=== PATIENT | female | born 1965 | race Caucasian/White ===

== ENCOUNTER → 2020-07-17 13:22 | Outpatient (CLI) | payer MEDICARE, MEDICAID, SELFPAY ==
[2020-07-10 14:19] VITALS: BMI 34.7
--- NOTE | 2020-07-17 13:23 | US_ITS ---
HISTORY: Goiter . Neck swelling. 33 images. No comparison imaging. Findings: The thyroid isthmus is normal at 3 mm. The right lobe of the thyroid gland is homogeneous in echotexture measuring 4.3 x 1.2 by 1.6 cm No nodules are perceived. Color Doppler imaging demonstrates flow to the right lobe of the thyroid. The left lobe of the thyroid gland measures 3.2 x 0.8 x 1 cm. Left lobe thyroid gland is homogeneous in echotexture. No nodules are perceived. Color Doppler imaging suggests flow to the left lobe of thyroid gland. US/Thyroid IMPRESSION: Normal. at 0647 Reported and signed by: Dajuan Estrada MD Electronically Signed: Dajuan Estrada MD at 6:46 EST Tel , Service support ,
== END ==
PROVIDERS: PCP Nurse Practitioner Family; Referring Provider Internal Medicine Endocrinology, Diabetes & Metabolism; Visit Provider Internal Medicine Endocrinology, Diabetes & Metabolism
DX: E04.9 Nontoxic goiter, unspecified (principal)
CPT/HCPCS: 76536

== ENCOUNTER → 2023-02-07 | Outpatient (CLI) | payer MEDICARE, MEDICAID, SELFPAY ==
--- NOTE | 2023-02-07 14:00 | RAD_ITS ---
EXAM: XR LUMBOSACRAL SPINE, 2 OR 3 VIEWS CLINICAL INDICATION: Radiculopathy, lumbar region TECHNIQUE: Frontal and lateral views of the lumbar spine and sacrum. COMPARISON: No relevant prior studies available. FINDINGS: VERTEBRAE: There are disc markers over L3-4 and L4-5 levels, apparently disc spacers. Posterior hardware at L3-4 is intact. Mild anterior spondylosis most pronounced at L1-L3. The usual lordotic curvature of the lumbar spine is well-maintained. Preserved vertebral body height. No fracture. No significant facet arthropathy. DISC SPACES: Mild disc space narrowing at L1-2 and L2-3. VASCULATURE: Peripheral calcification of the infrarenal aorta, no evidence of aneurysm. GASTROINTESTINAL TRACT: Unremarkable as visualized. Included bowel gas pattern is non-obstructive. RAD/Lumbar Spine 2 or 3 Views IMPRESSION: Degenerative and postoperative changes. No acute abnormality identified. Well-maintained lordotic curvature. Advanced aortoiliac arterial atherosclerotic calcification for the patient''s stated age. Electronically Signed: Joycelyn iKnsey MD at 8:49 EDT ,
--- NOTE | 2023-02-07 14:00 | RAD_ITS ---
EXAM: XR CERVICAL SPINE, 4 OR 5 VIEWS CLINICAL INDICATION: Radiculopathy, cervical region TECHNIQUE: 3 views, AP, lateral and open-mouth odontoid views. COMPARISON: No relevant prior studies available. FINDINGS: VERTEBRAE: Mild anterior spondylosis at 3-4 and moderate anterior spondylosis at C4-5. Straightening of the usual lordotic curvature. Postoperative changes with anterior stabilization plate and vertebral body screws at C5-6-7 with well fused appearance of the disc spaces. Preserved vertebral body height. No acute fracture. No significant facet arthropathy. DISC SPACES: Unremarkable. Disc spaces are maintained. SOFT TISSUES: Unremarkable. No prevertebral soft tissue widening. LUNG APICES: Clear. RAD/Cerv Spine 2 or 3 Views IMPRESSION: Degenerative and postoperative changes. No acute findings. Electronically Signed: Joycelyn Kinsey MD at 8:39 EDT ,
== END | disposition home or self-care (01) ==
PROVIDERS: PCP Nurse Practitioner Family; Referring Provider Anesthesiology Pain Medicine; Visit Provider Anesthesiology Pain Medicine
DX: M54.12 Radiculopathy, cervical region (principal); M54.16 Radiculopathy, lumbar region
CPT/HCPCS: 72040; 72100

== ENCOUNTER → 2023-08-08 | Outpatient (CLI) | payer MEDICARE, MEDICAID, SELFPAY ==
[2023-08-08 11:36] LABS: Amphetamine Urine VISTA NEGATIVE (<1000 ng/mL); Barbiturate Urine VISTA NEGATIVE (< 200 ng/mL); Benzodiazepine Urine VISTA NEGATIVE (< 200 ng/mL); Cocaine Urine VISTA NEGATIVE (< 300 ng/mL); Ecstacy Urine VISTA POSITIVE (< 500 ng/mL); Methadone Urine VISTA NEGATIVE (< 300 ng/mL); PCP Urine VISTA NEGATIVE (< 25 ng/mL); THC Urine VISTA NEGATIVE (< 50 ng/mL); Vista UDS pH Range 8
== END | disposition home or self-care (01) ==
LOC: LAB 10:32
PROVIDERS: Referring Provider Anesthesiology Pain Medicine; Visit Provider Anesthesiology Pain Medicine
DX: F11.20 Opioid dependence, uncomplicated (principal)
CPT/HCPCS: 80307

== ENCOUNTER → 2023-10-04 | Outpatient (CLI) | payer MEDICARE, MEDICAID, SELFPAY ==
--- NOTE | 2023-10-04 14:41 | MRI_ITS ---
STUDY: MRI LUMBAR SPINE WITHOUT CONTRAST REASON FOR EXAM: Female, 58 years old. Pain low back and left hip; hx 2 prior fusions TECHNIQUE: Standardized fat and water weighted pulse sequences were obtained in the sagittal and axial planes. COMPARISON: X-ray lumbar spine dated September 23, 2023. FINDINGS: Normal lumbar lordosis. There is no substantial scoliosis. Normal conus medullaris that terminates at the T12-L1 level. No marrow edema or fracture or compression deformity is present. Posterior fusion rods and pedicle screws and interbody grafts are present at L3-L4. T12-L1: Normal endplates. Normal disc height, hydration and morphology. Normal bilateral facet joints. Normal central canal and bilateral lateral recesses. Normal bilateral intervertebral neural foramina. L1-2: Diffuse disc desiccation with mild to moderate disc space narrowing and diffuse disc bulge/spur complex. Mild facet joint hypertrophy. Moderate left foraminal stenosis with nerve root compression. Mild right foraminal stenosis. Normal central canal and bilateral lateral recesses. L2-3: Diffuse disc desiccation with moderate disc space narrowing and a diffuse disc bulge/disc spur. Mild central canal stenosis and bilateral lateral recess stenosis with nerve root compression secondary to moderate facet joint and mild ligamenta flava hypertrophy. Mild bilateral foraminal stenosis. Low signal fibrosis surrounds the left foraminal nerve root with mass effect on the nerve root best appreciated on image /15 series 7 and 25/30 series 10. Normal bilateral facet joints. Normal central canal and bilateral lateral recesses. Normal bilateral intervertebral neural foramina. L3-4: Stable interbody graft. No evidence of osteomyelitis or discitis. Small Schmorl''s node/endplate degenerative changes noted. No posterior disc herniation or bulging. Significant right facet joint hypertrophy. Mild to moderate right foraminal stenosis with posterior nerve root impingement. Normal left neural foramen. Normal central canal and bilateral lateral recesses. L4-5: Normal endplates. Diffuse disc desiccation with mild to moderate disc space narrowing and minimal annular bulging. Moderate Modic endplate degenerative signal and changes. Mild to moderate facet joint hypertrophy and bilateral lateral recess stenosis. Normal central canal. Normal bilateral intervertebral neural foramina. L5-S1: Normal endplates. Normal disc height, hydration and morphology. Mild left and moderate right facet joint hypertrophy. Normal central canal and bilateral lateral recesses. Normal bilateral intervertebral neural foramina. Normal visualized sacral ala. There is moderate paraspinal muscular atrophy. MRI/Spine Lumbar (Routine) IMPRESSION: 1. Multilevel degenerative changes, as described above. 2. Mild central canal stenosis and bilateral lateral recess stenosis at L2-L3 3. Low signal fibrosis surrounding and impinging on the left foraminal nerve root at L2-L3 4. Multilevel foraminal stenosis. Electronically Signed: Nader Connor MD at 16:24 EDT ,
== END | disposition home or self-care (01) ==
LOC: MRI 14:30
PROVIDERS: PCP Hospitalist; Referring Provider Orthopaedic Surgery; Visit Provider Orthopaedic Surgery
DX: M54.50 Low back pain, unspecified (principal); Z98.1 Arthrodesis status
CPT/HCPCS: 72148

== ENCOUNTER → 2024-12-24 | Outpatient (CLI) | payer MEDICARE, MEDICAID, SELFPAY ==
[2024-12-24 18:40] LABS: Amphetamine Urine NEGATIVE (<1000 ng/mL); Barbiturate Urine NEGATIVE (< 200 ng/mL); Benzodiazepine Urine NEGATIVE (< 200 ng/mL); Buprenorphine Urine NEGATIVE (< 200 ng/mL); Cocaine Urine NEGATIVE (< 300 ng/mL); Fentanyl, Urine NEGATIVE; Methadone Urine NEGATIVE (< 300 ng/mL); Opiates Urine NEGATIVE (< 300 ng/mL); Oxycodone, Urine NEGATIVE (< 100 ng/mL); PCP Urine NEGATIVE (< 25 ng/mL); THC Urine NEGATIVE (< 50 ng/mL)
== END | disposition home or self-care (01) ==
LOC: LAB 15:57
PROVIDERS: PCP Hospitalist; Referring Provider Anesthesiology Pain Medicine; Visit Provider Anesthesiology Pain Medicine
DX: F11.20 Opioid dependence, uncomplicated (principal)
CPT/HCPCS: 80307